=== PATIENT | female | born 1985 | race Caucasian/White ===

== ENCOUNTER 2024-11-21 14:18 | Observation (INO) | payer BC, SELFPAY ==
--- NOTE | ~2024-11-21 | XR_ITS ---
EXAMINATION: XR LUMBOSACRAL SPINE CLINICAL INFORMATION: left lower pain, radiating down leg ; radiculopathy. COMPARISON: None available. TECHNIQUE: Three views of the lumbosacral spine. FINDINGS: Normal lordosis. No scoliosis. No subluxations. No fracture, compression deformity, or suspicious bone lesion. Normal facet alignment. Minimal facet degeneration L4-S1. Mild disc degeneration evident L4-5 and moderate at L5-S1. Discs otherwise preserved. No discrete soft tissue abnormalities. XR/XR lumbar spine 2-3V IMPRESSION: 1. Mild degenerative spondylosis L4-S1. Electronically signed by: Jama Fernandes MD 11/21/2024 03:38 PM [facility]
--- NOTE | ~2024-11-21 | MR_ITS ---
EXAMINATION: MR LUMBAR SPINE WITHOUT CONTRAST CLINICAL INFORMATION: Low back pain. Left-sided disc extrusion at L5-S1 seen on recent CT. COMPARISON: Correlated to CT dated November 22, 2024. TECHNIQUE: MRI of the lumbar spine was obtained using routine sequences without contrast. FINDINGS: Last rib-bearing vertebra labeled T12. There is disc desiccation at L5-S1 and L4-5. The alignment is normal. No bone marrow STIR signal abnormality. The conus medullaris ends at inferior endplate of L1 with normal signal. T12-L1: No disc herniation. No neuroforamina stenosis. L1-2: No disc herniation. No neuroforamina stenosis. L2-3: Left subarticular disc protrusion. No compression upon neural elements. Facet joint hypertrophy. L3-4: No disc herniation. No central spinal canal stenosis. No gross neuroforamina stenosis. L4-5: Broad-based disc bulging abutting the L5 exiting nerve roots on the lateral recesses. Facet joint and ligamentum flavum hypertrophy. Bilateral neuroforamina narrowing encroaching the L4 exiting nerve roots. L5-S1: There is a broad-based left subarticular and foraminal disc herniation compressing the left S1 nerve root with engorgement. There is a left neuroforamina narrowing encroaching the left L5 exiting nerve root. Facet joint hypertrophy. No prevertebral compartment hematoma, mass or fluid collection. MR/MR lumbar spine wo con IMPRESSION: Large, broad-based left subarticular and foraminal disc herniation L5-S1 compressing the left S1 nerve root resulting in inflammatory changes. Left neuroforamina narrowing L5-S1 encroaching the left L5 nerve root secondary to the disc herniation. Lumbar spondylosis L4-5 and L2-3 without compression upon neural elements. Electronically signed by: Robbie Pennington MD 11/23/2024 11:28 AM EST
--- NOTE | ~2024-11-21 | CT_ITS ---
EXAMINATION: CT LUMBAR SPINE WITHOUT CONTRAST CLINICAL INFORMATION: Back pain. COMPARISON: None available. Plain films of the lumbar spine 11/21/2024. TECHNIQUE: Spiral CT imaging of the lumbar spine performed in axial plane without contrast. Multiplanar reformatted images were constructed from the axial data set. This CT examination was performed using dose optimization techniques as appropriate, variously including the following: *Automated exposure control *Adjustment of mA and/or kV according to patient size (this includes techniques or standardized protocols for targeted exams where dose is matched to indication/reason for exam; i.e. extremities or head) *Use of iterative reconstruction technique FINDINGS: There is a minimal levoconvex scoliosis. There is a normal lumbar lordosis. There is no subluxation. Normal sagittal alignment. No fracture, compression deformity, or suspicious bone lesion. Normal facet alignment bilaterally, without significant facet arthropathy. Mild disc space narrowing L4-5 and L5-S1. Minimal disc osteophytic spurring of L5-S1. Disc spaces otherwise preserved. There is a suggestion of a large left lateral disc extrusion at the L5-S1 level, which appears to be obliterating the left subarticular recess and causing mass effect upon the traversing left S1 roots (series 6, image 98). There is moderate right and mild left neural foraminal narrowing at this level. Allowing for modality limitations, there is no additional significant disc herniation identified. There is a shallow disc bulge without significant mass effect at L4-5. Mild degenerative arthritis in the bilateral SI joints. The paraspinous and paravertebral soft tissue structures demonstrate no abnormalities. CT/CT lumbar spine wo IV con IMPRESSION: 1. Primary pathology is a large left lateral disc extrusion at L5-S1, which is causing likely impingement and mass effect upon the traversing left S1 roots. There is also mild right and moderate left neural foraminal narrowing at this level. 2. There is a shallow disc bulge without significant mass effect at L4-5. Electronically signed by: Jama Fernandes MD 11/22/2024 09:36 AM [facility]
[2024-11-21 15:02] VITALS: BP 112/82; PULSE 71; RESP 18; TEMP 36.4; O2SAT 99; BMI 23.5
--- NOTE | 2024-11-21 15:02 | ED.GENADULT ---
HPI - General Adult General Chief complaint: Extremity Injury, Lower Stated complaint: L leg pain and numbness Time Seen by Provider: 11/21/24 21:03 Source: patient Mode of arrival: ambulatory Limitations: no limitations History of Present Illness ED Provider: Dr. Colten Zayas HPI narrative: 39-year-old female with a history diabetes mellitus who presents emergency department for evaluation of severe left lower back pain radiating to her buttocks and down her leg to her foot since Wednesday11/17/2024 (4 days). The patient denies any acute injury. She states she was had similar pain in the past but it was not as severe and was very brief. She states that the pain is currently a constant, 9/10 pain which is worse with movement of her lower back and left leg. She states since onset the pain is gotten worse. Patient was at an urgent care yesterday and given a shot of Toradol with only minimal relief of her pain. She was also started on a Medrol Dosepak 4 mg which she started has not changed her pain yet. She was also given a prescription for Flexeril 10 mg pills but she was not taking this medication. She states she did have a COVID-19 infection 2 weeks ago. Over the last 24-48 hours she denied fever, chills, chest pain, shortness of breath, nausea, vomiting, diarrhea, frequency, urgency or dysuria. Related Data Home Medications ?Medication ?Instructions ?Recorded ?Confirmed albuterol sulfate 90 mcg/actuation 2 puff inhalation Q6H PRN 11/22/24 11/22/24 aerosol inhaler Shortness Of Breath Or Wheezing clonazepam 0.5 mg tablet 1 mg PO BID PRN Anxiety 11/22/24 11/22/24 cyclobenzaprine 10 mg tablet 10 mg PO BEDTIME PRN muscle spasm 11/22/24 11/22/24 fluoxetine 10 mg capsule 10 mg PO DAILY 11/22/24 11/22/24 fluoxetine 20 mg capsule 20 mg PO DAILY 11/22/24 11/22/24 methylprednisolone 4 mg tablets in 4 mg PO DIRECTED 11/22/24 11/22/24 a dose pack norgestimate 0.18 mg/0.215 mg/0.25 1 tab PO DAILY 11/22/24 11/22/24 mg-ethinyl estradiol 25 mcg tablet (Tri-Lo-Dorothy) Allergies Allergy/AdvReac Type Severity Reaction Status Date / Time codeine [CODEINE] Allergy Mild VOMITTING Verified 11/21/24 15:06 Review of Systems Review of Systems: Yes all other systems are reviewed and are negative [facility] Past Medical History [facility] Narrative: Social history: Patient denies tobacco use. She occasionally drinks alcohol. She occasionally smokes marijuana. Social History Social History Household Members: Family Housing: House Do you presently have visiting nurse or other home services: No Patient Tobacco Use Status: Never used Tobacco Second Hand Smoke Exposure: No Substance Use Type: Marijuana service: No Physical Exam ED Vital Signs: Vital Signs - 24 hr 11/21/24 22:38 11/22/24 00:22 Temperature 98 F 98.7 F Pulse Rate 61 64 Respiratory Rate 18 20 Blood Pressure 100/69 109/63 Pulse Oximetry 98 98 Oxygen Delivery Method Room Air Room Air BMI result Body Mass Index 23.5 Vital signs were normal Exam: General: Awake, alert, tearful, in distress secondary to her lower back and left leg pain Head: Normocephalic, atraumatic Heart: regular rate and rhythm, normal S1, S2 no murmurs or rubs Abdomen: soft, non-tender, nondistended, normal bowel sounds Back: Patient was tenderness with palpation over the lower lumbar and sacral vertebrae, there is tenderness with spasm with palpation over the left paraspinal muscles in the lumbar sacral area. Patient does have pain in her lower back with left leg raise but no pain with right leg raise. Extremities: no deformities, moves all extremities symmetrically Neuro: General: Awake, alert, oriented, normal speech Cranial nerves: Cranial nerves 2 through 12 intact Strength: Normal symmetric strength in both upper and lower extremities, able to hold both upper and lower extremities up against gravity with no driftmoves all extremities symmetrically Sensory: Patient was hypersensitive on the left compared to the right, light touch there were left lower extremity causes pain. Psych: Pleasant, cooperative Course Course Course Narrative: This is a rapid medical exam performed by Deidre Wright NP: Additional HPI, ROS, PE not included below will be deferred to primary provider. Patient is a 39-year-old female presenting with complaint of left lower back pain and left leg numbness and pain since Wednesday night. Went to urgent care yesterday and was given Toradol, prednisone and muscle relaxers, is not getting any relief. Denies saddle anesthesia or bowel or bladder incontinence. Denies recent falls or other trauma. Plan: upreg, xray Medications Administered Generic Name Dose Route Start Last Admin Trade Name Frecolten PRN Reason Stop Dose Admin Enoxaparin Sodium 40 mg 11/22/24 05:45 11/22/24 05:59 Enoxaparin Sodium 40 Mg/0.4 Ml Syringe SUBCUT 40 mg Q24H ASHOK Administration Fluoxetine HCl 10 mg 11/22/24 09:00 11/22/24 10:38 Fluoxetine Hcl 10 Mg Capsule PO Not Given DAILY ASHOK Fluoxetine HCl 20 mg 11/22/24 10:00 11/22/24 11:19 Fluoxetine Hcl 20 Mg Capsule PO 20 mg DAILY ASHOK Administration Gabapentin 300 mg 11/22/24 05:55 11/22/24 20:54 Gabapentin 300 Mg Capsule PO 300 mg BEDTIME ASHOK Administration Morphine Sulfate 4 mg 11/22/24 05:39 11/22/24 19:34 Morphine Sulfate 4 Mg/Ml Cartridge IVPUSH 4 mg Q4H PRN Administration Pain, Severe (Pain Scale 7-10) Protocol Ondansetron HCl 4 mg 11/22/24 05:39 11/22/24 16:09 Ondansetron Hcl 4 Mg/2 Ml Vial IVPUSH 4 mg Q8H PRN Administration Nausea and Vomiting Oxycodone HCl 5 mg 11/22/24 05:40 11/22/24 18:46 Oxycodone Hcl Immed Release 5 Mg Tablet PO Not Given Q6H ASHOK Prednisone 40 mg 11/22/24 14:35 11/22/24 15:54 Prednisone 20 Mg Tablet PO 40 mg DAILY ASHOK Administration Sodium Chloride 3 ml 11/22/24 08:00 11/22/24 19:38 0.9 % Sodium Chloride Flush 3 Ml Syringe IVFLUSH 3 ml QSHIFT ASHOK Administration Discontinued Medications Generic Name Dose Route Start Last Admin Trade Name Freq PRN Reason Stop Dose Admin Hydromorphone HCl 1 mg 11/22/24 00:12 11/22/24 00:25 Hydromorphone Hcl 1 Mg/Ml Syringe IVPUSH 11/22/24 00:13 1 mg ONCE STA Administration Protocol Hydromorphone HCl 1 mg 11/22/24 02:07 11/22/24 02:45 Hydromorphone Hcl 1 Mg/Ml Syringe IVPUSH 11/22/24 02:08 1 mg ONCE STA Administration Protocol Morphine Sulfate 4 mg 11/21/24 21:34 11/21/24 22:14 Morphine Sulfate 4 Mg/Ml Cartridge IVPUSH 11/21/24 21:35 4 mg ONCE STA Administration Protocol Morphine Sulfate 4 mg 11/21/24 22:51 11/21/24 23:34 Morphine Sulfate 4 Mg/Ml Cartridge IVPUSH 11/21/24 22:52 4 mg ONCE STA Administration Protocol Medical Decision Making Medical Decision Making MDM Narrative: 39-year-old female with a history diabetes mellitus who presents emergency department for evaluation of severe left lower back pain radiating to her buttocks and down her leg to her foot since Wednesday11/17/2024 (4 days). The patient denies any acute injury. She states she was had similar pain in the past but it was not as severe and was very brief. She states that the pain is currently a constant, 9/10 pain which is worse with movement of her lower back and left leg. She states since onset the pain is gotten worse. Patient was at an urgent care yesterday and given a shot of Toradol with only minimal relief of her pain. She was also started on a Medrol Dosepak 4 mg which she started has not changed her pain yet. She was also given a prescription for Flexeril 10 mg pills but she was not taking this medication. Vital signs were normal. Physical examination revealed tenderness palpation of the lower lumbar and sacral vertebrae, pain and spasm with palpation of the paraspinal muscles in the left lumbar sacral area, positive straight leg raise on the left but not on the right. Strength was symmetric and normal in both upper and lower extremities. Differential diagnosis: ?Includes but is not limited to sciatica, degenerative disc disease, degenerative arthritis, bulging disc, infectious process, myositis secondary to recent COVID infection, rhabdomyolysis, anemia, electrolyte abnormalities Course: 21:46 Patient was examination is concerning for possible sciatica however she did have a recent viral infection therefore I will check blood work on her to include CBC, CMP, ESR, CRP, CK. The patient was having 9/10 pain therefore I ordered morphine 4 mg IV. The goal will be to try to get the patient's pain down to a tolerable level with repeat doses of morphine and if we were unable to control her pain she may need admission for pain control. Patient was LS spine x-rays did reveal L4-L5 and L5-S1 degenerative disc disease with mild facet degeneration L4-S1 and mild L4-S1 degenerative spondylosis. These findings may explain the patient's sciatica like symptoms. 02:08 My interpretation patient's laboratory evaluation is as follows: [place] [address]. ESR was normal. CRP was below detectable limits. CMP was normal. The patient was treated with morphine 4 mg IV x2 and Dilaudid 1 mg IV x2 and despite this treatment she was still having 8/10 pain. Given her intractable pain, I will get the patient admitted for further pain control. I did discuss the patient's presentation over tiger text with the covering hospitalist and he accepted the patient onto the hospitalist service. The patient may need further imaging as an inpatient such as MRI to determine cause of her pain. Admission/Observation Consideration of admission/observation: Escalation of care including admission/observation considered (Yes) Consult Healthcare Provider Management of the patient was discussed with: Hospitalist Lab Data MDM Lab Attestation statement: I reviewed the patient's lab results. 11/21/24 22:12 11/21/24 22:12 Labs: Lab Results 11/21/24 Range/Units 22:12 WBC 12.1 H (4.8-10.8) X10*3/uL RBC 4.08 L (4.20-5.50) X10*6/uL Hgb 12.6 (12.0-16.0) g/dl Hct 37.1 (37.0-47.0) % MCV 90.9 (80.0-98.0) fL MCH 30.9 (27.0-33.0) pg MCHC 34.0 (31.0-35.0) g/dl RDW 12.5 (11.0-16.0) % Plt Count 209 (160-400) X10*3/uL MPV 9.5 (9.4-12.3) fL Immature Gran % (Auto) 0.2 (0.0-0.4) % Neut % (Auto) 61.1 (45-73) % Lymph % (Auto) 33.5 (20-40) % [place]ancock % (Auto) 4.3 (2-11) % Eos % (Auto) 0.5 (0-4) % Baso % (Auto) 0.4 (0-2) % Lymph # (Auto) 4.0 (1.2-4.9) X10*3/uL Hancock # (Auto) 0.5 (0.1-1.2) X10*3/uL Eos # (Auto) 0.1 (0.0-0.4) X10*3/uL Baso # (Auto) 0.1 (0.0-0.2) X10*3/uL Abs Immat Gran (auto) 0.03 (0.00-0.03) X10*3/uL Absolute Neuts (auto) 7.4 (2.0-8.3) x10*3/uL Absolute Nucleated RBC 0.000 (0.0-0.012) X10*3/uL Nucleated RBC % (auto) 0.0 (0.0-0.2) /100WBC ESR 6 (0-20) MM/HR Sodium 143 (135-145) mmol/L Potassium 3.8 (3.3-5.1) mmol/L Chloride 111 H (96-108) mmol/L Carbon Dioxide 24 (22-29) mmol/L Anion Gap 12 (12-20) BUN 9 (9-16) mg/dL Creatinine 0.75 (0.5-1.4) mg/dL Estim Creat Clear Calc 103.1 Estimated GFR > 60 Random Glucose 86 (60-115) mg/dL Calcium 9.4 (8.4-10.2) mg/dL Total Bilirubin 0.4 (0.0-1.0) mg/dL AST 22 (5-31) U/L ALT 20 (0-31) U/L Alkaline Phosphatase 40 (39-117) U/L Total Creatine Kinase 63 (26-140) U/L C-Reactive Protein < 0.10 (< or = 0.50) mg/dL Total Protein 7.1 (6.5-8.0) g/dL Albumin 4.3 (3.5-5.0) g/dL Beta HCG, Quant < 2 mIU/mL Independent Interpretation I performed an independent interpretation of an: Plain X-Ray Interpretation: My independent interpretation of the patient's 3-view lumbar x-ray is as follows: Diminished this space L4-L5 L5-S1 Radiology Impression Discussion of test interpretation with radiology: I have reviewed the radiologist's reading. Radiologist Impression: Three views of the lumbosacral spine. FINDINGS: Normal lordosis. No scoliosis. No subluxations. No fracture, compression deformity, or suspicious bone lesion. Normal facet alignment. Minimal facet degeneration L4-S1. Mild disc degeneration evident L4-5 and moderate at L5-S1. Discs otherwise preserved. No discrete soft tissue abnormalities. XR/XR lumbar spine 2-3V IMPRESSION: 1. Mild degenerative spondylosis L4-S1. Electronically signed by: Jama Fernandes MD 11/21/2024 03:38 PM [facility] Discharge Plan Discharge Clinical Impression: Intractable back pain, Sciatica of left side, Low back pain radiating to left leg, Degenerative disc disease at L5-S1 level, Spondylosis Patient Disposition: Admitted As Inpatient Interventions: Admission Worksheet (ED) Last Done: 11/22/24 17:04 Discharge Date/Time: 11/22/24 17:51
[2024-11-21] MEDS: Morphine Sulfate 4 MG/ML CARTRIDGE IVPUSH ×2 (22:14→23:34)
[2024-11-21 22:19] LABS: MANUAL DIFF FLAG NO
[2024-11-21 22:21] LABS: Basophils Absolute Auto 0.1 X10*3/uL (0.0-0.2); Basophils Percent Auto 0.4 % (0-2); Eosinophils Absolute Auto 0.1 X10*3/uL (0.0-0.4); Eosinophils Percent Auto 0.5 % (0-4); Hematocrit 37.1 % (37.0-47.0); Hemoglobin 12.6 g/dl (12.0-16.0); Imm Gran Abs Auto 0.03 X10*3/uL (0.00-0.03); Imm Gran Pct Auto 0.2 % (0.0-0.4); Lymphocytes Percent Auto 33.5 % (20-40); Mean Corpuscular Hemoglobin 30.9 pg (27.0-33.0); Mean Corpuscular Volume 90.9 fL (80.0-98.0); Mean Platelet Volume 9.5 fL (9.4-12.3); Monocytes Absolute Auto 0.5 X10*3/uL (0.1-1.2); Monocytes Percent Auto 4.3 % (2-11); Neutrophils Absolute Auto 7.4 x10*3/uL (2.0-8.3); Neutrophils Percent Auto 61.1 % (45-73); Platelet Count 209 X10*3/uL (160-400); Red Blood Count 4.08 X10*6/uL (4.20-5.50); Red Cell Distribution Width 12.5 % (11.0-16.0); White Blood Count 12.1 X10*3/uL (4.8-10.8)
[2024-11-21 22:38] VITALS: BP 100/69; PULSE 61; RESP 18; TEMP 36.6; O2SAT 98
[2024-11-21 22:43] LABS: Alanine Aminotransferase 20 U/L (0-31); Albumin Level 4.3 g/dL (3.5-5.0); Anion Gap 12 (12-20); Aspartate Amino Transferase 22 U/L (5-31); Bilirubin Total 0.4 mg/dL (0.0-1.0); Blood Urea Nitrogen 9 mg/dL (9-16); C Reactive Protein < 0.10 mg/dL (< or = 0.50); Calcium 9.4 mg/dL (8.4-10.2); Carbon Dioxide 24 mmol/L (22-29); Chloride 111 mmol/L (96-108); Creatinine Clr Calc Pharmacy 103.1; Estimated Glomerular Filt Rate > 60; Glucose Random 86 mg/dL (60-115); Potassium 3.8 mmol/L (3.3-5.1); Sodium 143 mmol/L (135-145); Total Protein 7.1 g/dL (6.5-8.0)
[2024-11-21 23:01] LABS: Erythrocyte Sedimentation Rate 6 MM/HR (0-20)
[2024-11-21 23:13] LABS: Alkaline Phosphatase 40 U/L (39-117)
[2024-11-22] VITALS (7 sets, daily range): BP systolic 94–120; BP diastolic 52–78; PULSE 53–64; RESP 14–20; TEMP 36–37.1; O2SAT 96–100
[2024-11-22] MEDS: HYDROmorphone HCl 1 MG/ML SYRINGE IVPUSH ×2 (00:25→02:45)
--- NOTE | 2024-11-22 05:29 | PM.IMHP ---
History of Present Illness Date of Service: 11/22/24 Attending physician on admission: Adrian Bustos Chief Complaint: Left lower back pain radiating down leg Patient is a 39-year-old female with no significant past medical history, who presented to the ED due to severe left lower back pain radiating down the buttocks to the foot for the past 4 days. She denies any recent injury or any mechanism of action that could have caused this. She reports her father has sciatica and feels that this is the same. She rates her pain at 10/10 and describes it as her leg muscle being too short and pulling upwards. She went to urgent care who prescribed her Medrol Dosepak as well as gave her Toradol and Flexeril. She reports that she had not tried the Flexeril but did not have any relief from any of the other medications. She denies any additional symptoms including nausea, vomiting, abdominal pain, headache, fever, chills or urinary symptoms. She did recently have COVID about 2 weeks ago and has recovered from this. Review of Systems Constitutional: Constitutional: Denies body ache(s), Denies chills, Reports fatigue (Has not been able to sleep due to pain), Denies fever(s) and Denies headache(s) Eyes: Eyes: Denies change in vision and Denies photophobia ENT: Denies headache(s), Denies nasal congestion, Denies nasal discharge and Denies sore throat Cardiovascular: Cardiovascular: Denies chest pain, Denies rapid heart rate, Denies leg edema, Denies lightheadedness and Denies dyspnea Respiratory: Respiratory: Denies chest congestion, Denies cough, Denies dyspnea and Denies wheezing Gastrointestinal: Gastrointestinal: Denies abdominal pain, Denies diarrhea, Denies nausea and Denies vomiting Genitourinary: Genitourinary: Denies hematuria, Denies dysuria and Denies urinary urgency Musculoskeletal: Musculoskeletal: Reports back pain, Denies myalgias and Reports radiating pain into limb Integumentary/Breasts: Skin/Breast: Denies rash Neurologic: Denies confusion and Denies headache(s) Psychiatric: Psychiatric: Denies confusion Endocrine: Endocrine: Reports fatigue (Has not been able to sleep due to pain) Hematologic/Lymphatic: Hematologic/Lymphatic: Denies easy bleeding and Denies easy bruising Allergic/Immunologic: Allergic/Immunologic: Denies wheezing PMFSH Functional capacity: independent ambulation Social History Patient Tobacco Use Status: Never used Tobacco Advance Directives: No Advance Directives Information Provided: No Do you have a plan to hurt others: No Plan Nutrition Risks: No Nutritional Risk Narrative: Occasional marijuana, no alcohol or tobacco use Meds Allergies Allergy/AdvReac Type Severity Reaction Status Date / Time codeine [CODEINE] Allergy Mild VOMITTING Verified 11/21/24 15:06 Physical Exam Vital Signs and Narrative: Vital Signs: Last Vital Signs Temp 98.7 F 11/22/24 00:22 Pulse 64 11/22/24 00:22 Resp 20 11/22/24 00:22 BP 109/63 11/22/24 00:22 Pulse Ox 98 11/22/24 00:22 O2 Del Method Room Air 11/22/24 00:22 BMI result Body Mass Index 23.5 General: AOx3, no acute distress Resp: CTA bilaterally CVS: S1, S2, RRR GI: +BS, NT, no distention Skin: Warm, dry Neuro: Cranial nerves II-XII grossly intact bilaterally. Motor grossly intact bilaterally MSK/Extremities: No LE edema. pain LL back with palpation. Psych: Appropriate affect Const: General: No confusion Orientation/consciousness: No confusion Eyes: Direct Ophthalmoscopy: No photophobia Neuro: General: No confusion Results Labs 11/21/24 22:12 11/21/24 22:12 Labs: Laboratory Results - last 24 hr 11/21/24 22:12 MCV 90.9 MCH 30.9 MCHC 34.0 RDW 12.5 Plt Count 209 MPV 9.5 Immature Gran % (Auto) 0.2 Neut % (Auto) 61.1 Lymph % (Auto) 33.5 Walton % (Auto) 4.3 Eos % (Auto) 0.5 Baso % (Auto) 0.4 Lymph # (Auto) 4.0 Walton # (Auto) 0.5 Eos # (Auto) 0.1 Baso # (Auto) 0.1 Abs Immat Gran (auto) 0.03 Absolute Neuts (auto) 7.4 Absolute Nucleated RBC 0.000 Nucleated RBC % (auto) 0.0 ESR 6 Anion Gap 12 Estim Creat Clear Calc 103.1 Estimated GFR > 60 Random Glucose 86 Calcium 9.4 Total Bilirubin 0.4 AST 22 ALT 20 Alkaline Phosphatase 40 Total Creatine Kinase 63 C-Reactive Protein < 0.10 Total Protein 7.1 Albumin 4.3 Imaging Radiologist's Impressions: Impressions Lumbar Spine X-Ray 11/21/24 15:25 IMPRESSION: 1. Mild degenerative spondylosis L4-S1. Electronically signed by: Jama Fernandes MD 11/21/2024 03:38 PM [facility] Assessment and Plan (1) Intractable back pain: Status: Acute (2) Sciatica of left side: Status: Acute (3) Degenerative disc disease at L5-S1 level: Status: Acute (4) Spondylosis: Status: Acute Plan Patient is a 39-year-old female with no significant past medical history, who presented to the ED due to severe left lower back pain radiating down the buttocks to the foot for the past 4 days. Intractable back pain due to degenerative disc disease, spondylosis and sciatica - WBC mildly elevated, reactive. vital signs stable, no infectious etiology - lumbar spine x-ray with mild degenerative spondylosis L4-S1, minimal facet degeneration L4-S1, mild disc degeneration evident L4-5 and moderate at L5-S1 - given morphine 8 mg total and hydromorphone 2 mg total with minimal short-term improvement - gabapentin for pain - CT lumbar spine to r/o fx - PT eval - admit for pain management - will need to f/u with spinal specialist Full code VTE prophylaxis: Lovenox Patient with intractable pain due to degenerative disc disease, spondylosis and sciatica, requiring admission for observation and pain management. Quality Stroke Does the patient have a stroke diagnosis?: No VTE Prior VTE?: No VTE Risk Level:: Medical - moderate - high VTE Device Contraindication: Treatment Not Indicated VTE Drug Contraindication: N/A - Med Ordered
[2024-11-22] MEDS: Enoxaparin Sodium 40 MG/0.4 ML SYRINGE SUBCUT (05:59)
[2024-11-22] MEDS: oxyCODONE HCl Immed Release 5 MG TABLET PO ×2 (05:59→11:21)
[2024-11-22] MEDS: Gabapentin 300 MG CAPSULE PO ×2 (05:59→20:54)
[2024-11-22 07:33] LABS: HCG Quantitative < 2 mIU/mL
--- NOTE | 2024-11-22 08:29 | PHA.MEDREC ---
Addendum entered by Chelsy Valencia [facility] 11/22/24 09:50: Med rec was reviewed by [facility]. Addendum entered by Gurvinder Galvez 11/22/24 09:34: Spoke with patient again about Fluoxetine and she confirmed her doctor increased it to 30mg daily and she confirmed she takes 1 10mg tab and 1 20mg tab together daily. Original Note: Pharmacy Consult ? Medication Reconciliation Pharmacy has completed the medication reconciliation. Spoke with patient and she confirmed her medications. Patient confirmed the Cyclobenzaprine 10mg tab once at bedtime as needed and stated she started it 2 days ago when she got them. She also confirmed she is taking the Methylprednisolone 4 mg dose pack and confirmed she is on day 3 of that out of 6. She confirmed she took her medications yesterday.
[2024-11-22] MEDS: Morphine Sulfate 4 MG/ML CARTRIDGE IVPUSH ×4 (08:46→23:38)
[2024-11-22] MEDS: ondansetron HCL 4 MG/2 ML VIAL IVPUSH ×2 (08:46→16:09)
[2024-11-22] MEDS: 0.9 % Sodium Chloride Flush 3 ML SYRINGE IVFLUSH ×2 (08:47→19:38)
[2024-11-22] MEDS: FLUoxetine HCl 20 MG CAPSULE PO (11:19)
--- NOTE | 2024-11-22 12:26 | MHC.CM.PN ---
pt lives with and child she is independent and working dc plan home n/s
--- NOTE | 2024-11-22 13:19 | PM.NEUROCN ---
History of Present Illness Data of Consult Service Date: 11/22/24 Primary Care Provider: Luis F Arias MD [facility] Reason for consult: Left sciatica type pain 39 years old woman who in the past had left-sided back pain but during recent days this pain got worse. Sitting in the car, pain would start in left lower back and would radiate to posterior part of her leg to the foot. This pain got so severe she came to emergency room. Any movement of back was making it worse. Review of Systems Review of Systems: No recent fall or trauma. [facility] Social History Social History Household Members: Family Housing: House Do you presently have visiting nurse or other home services: No Patient Tobacco Use Status: Never used Tobacco Smoked in Last 30 Days: No Patient Interested in Nicotine Replacement: No Patient Given Instructions on How to Stop Smoking: No Second Hand Smoke Exposure: No Use of substances other than those prescribed or required for medical reasons: No Substance Use Type: Marijuana Currently Displaying Signs/Symptoms of Drug Intoxication Withdrawal: No Any prior treatment program specific to substance use: No Have you been hit, kicked, punched, or otherwise hurt by someone within the past year? If so, by whom?: No Do you feel safe in your current relationship?: Yes Is there a partner from a previous relationship who is making you feel unsafe now?: No Are you made to feel afraid or neglected: No Spiritual Healthcare Practices: oriental orthodox Advance Directives: No Advance Directives Information Provided: No Do you have a plan to hurt others: No Plan Recently lost weight without trying: Unsure How much weight loss: Unsure Nutrition Risks: No Nutritional Risk Patient : No : No Poor oral hygiene: No service: No Meds Allergies Allergy/AdvReac Type Severity Reaction Status Date / Time codeine [CODEINE] Allergy Mild VOMITTING Verified 11/21/24 15:06 Active Medications: Current Medications Acetaminophen (Acetaminophen 325 Mg Tablet) 650 mg PO Q6H PRN PRN Reason: Pain, Mild 1-3,fever,headache Albuterol Sulfate (Albuterol Sulfate 90 Mcg 8 Gm Inhaler) 2 puff INHALE Q6H PRN PRN Reason: Shortness Of Breath Or Wheezing Calcium Carbonate (Calcium Carbonate 750 Mg Tab.Chew) 750 mg PO Q4H PRN PRN Reason: Heartburn Clonazepam (Clonazepam 1 Mg Tablet) 1 mg PO BID PRN PRN Reason: Anxiety Cyclobenzaprine HCl (Cyclobenzaprine Hcl 10 Mg Tablet) 10 mg PO BEDTIME PRN PRN Reason: muscle spasm Enoxaparin Sodium (Enoxaparin Sodium 40 Mg/0.4 Ml Syringe) 40 mg SUBCUT Q24H [facility] Last Admin: 11/22/24 05:59 Dose: 40 mg Fluoxetine HCl (Fluoxetine Hcl 10 Mg Capsule) 10 mg PO DAILY [facility] Last Admin: 11/22/24 10:38 Dose: Not Given Fluoxetine HCl (Fluoxetine Hcl 20 Mg Capsule) 20 mg PO DAILY [facility] Last Admin: 11/22/24 11:19 Dose: 20 mg Gabapentin (Gabapentin 300 Mg Capsule) 300 mg PO BEDTIME [facility] Last Admin: 11/22/24 05:59 Dose: 300 mg Magnesium Hydroxide (Milk Of Magnesia 30 Ml Oral.Susp) 30 ml PO DAILY PRN PRN Reason: Constipation Melatonin (Melatonin 3 Mg Tablet) 6 mg PO BEDTIME PRN PRN Reason: Insomnia Morphine Sulfate (Morphine Sulfate 4 Mg/Ml Cartridge) 4 mg IVPUSH Q4H PRN; Protocol PRN Reason: Pain, Severe (Pain Scale 7-10) Last Admin: 11/22/24 13:07 Dose: 4 mg Ondansetron HCl (Ondansetron Hcl 4 Mg/2 Ml Vial) 4 mg IVPUSH Q8H PRN PRN Reason: Nausea and Vomiting Last Admin: 11/22/24 08:46 Dose: 4 mg Oxycodone HCl (Oxycodone Hcl Immed Release 5 Mg Tablet) 5 mg PO Q6H [facility] Last Admin: 11/22/24 11:21 Dose: 5 mg Sodium Chloride (0.9 % Sodium Chloride Flush 3 Ml Syringe) 3 ml IVFLUSH QSHIFT [facility] Last Admin: 11/22/24 08:47 Dose: 3 ml Home Medications ?Medication ?Instructions ?Recorded ?Confirmed ?Last Taken ?Type albuterol sulfate 90 mcg/actuation 2 puff inhalation Q6H PRN 11/22/24 11/22/24 Unknown History aerosol inhaler Shortness Of Breath Or Wheezing clonazepam 0.5 mg tablet 1 mg PO BID PRN Anxiety 11/22/24 11/22/24 11/21/24 History cyclobenzaprine 10 mg tablet 10 mg PO BEDTIME PRN muscle spasm 11/22/24 11/22/24 11/20/24 History fluoxetine 10 mg capsule 10 mg PO DAILY 11/22/24 11/22/24 11/21/24 History fluoxetine 20 mg capsule 20 mg PO DAILY 11/22/24 11/22/24 11/21/24 History methylprednisolone 4 mg tablets in 4 mg PO DIRECTED 11/22/24 11/22/24 11/21/24 History a dose pack norgestimate 0.18 mg/0.215 mg/0.25 1 tab PO DAILY 11/22/24 11/22/24 11/21/24 History mg-ethinyl estradiol 25 mcg tablet (Tri-Lo-Dorothy) Physical Exam Vital Signs: Vital Signs: Last Vital Signs Temp 98.1 F 11/22/24 11:30 Pulse 64 11/22/24 11:30 Resp 14 11/22/24 11:30 BP 105/67 11/22/24 11:30 Pulse Ox 100 11/22/24 11:30 O2 Del Method Room Air 11/22/24 11:30 BMI result Body Mass Index 23.5 Neuro: Other: Alert and awake with normal spontaneity of speech fluency comprehension and affect. Left ankle reflex was 1+ in right was 2+. Both knee reflexes were 2+. Strength examination in left extensor hallucis longus, foot dorsiflexion plantars flexion inversion and eversion was okay. She was able to lift her left leg up but felt significant pain and was in distress. Results Labs 11/21/24 22:12 11/21/24 22:12 Labs: Short CBC 11/21/24 Range/Units 22:12 WBC 12.1 H (4.8-10.8) X10*3/uL Hgb 12.6 (12.0-16.0) g/dl Hct 37.1 (37.0-47.0) % Plt Count 209 (160-400) X10*3/uL BMP 11/21/24 22:12 Sodium 143 Potassium 3.8 Chloride 111 H Carbon Dioxide 24 BUN 9 Creatinine 0.75 Calcium 9.4 Cardiac Enzymes 11/21/24 Range/Units 22:12 Total Creatine Kinase 63 (26-140) U/L Liver Function 11/21/24 Range/Units 22:12 Total Bilirubin 0.4 (0.0-1.0) mg/dL AST 22 (5-31) U/L ALT 20 (0-31) U/L Alkaline Phosphatase 40 (39-117) U/L Albumin 4.3 (3.5-5.0) g/dL CTA of her back revealed left L5-S1 disc extrusion. Assessment and Plan (1) Lumbar radiculopathy: Status: Acute 39 years old woman with severe left lower lumbar radicular pain with CTA of lumbar spine revealing L5-S1 disc extrusion, likely the cause of this problem. She would probably require surgical decompression but for now she could be treated with a tapering dose of prednisone. Neuro surgical consultation is recommended. Procedures Date of Service Date of Service: 11/22/24
--- NOTE | 2024-11-22 14:33 | PM.EVENT ---
Event Note Date of Service: 11/22/24 Event Note: 39-year-old female with no significant past medical history, who presented to the ED due to severe left lower back pain radiating down the buttocks to the foot for the past 4 days. Intractable back pain due to degenerative disc disease, spondylosis and sciatica - WBC mildly elevated, reactive. vital signs stable, no infectious etiology - lumbar spine x-ray with mild degenerative spondylosis L4-S1, minimal facet degeneration L4-S1, mild disc degeneration evident L4-5 and moderate at L5-S1 - given morphine 8 mg total and hydromorphone 2 mg total with minimal short-term improvement - gabapentin for pain - CT lumbar spine done. seen by neuro with the following pt seen/examined. Labs, imgaing reviewed. She is having back pain d/t L5-S1 disc extrusion, likely the cause of this problem. She would probably require surgical decompression but for now she could be treated with a tapering dose of prednisone. Neuro surgical consultation is recommended. Starting Prednisone and will discuss with our Neurosrug team Time Spent With Patient Time: Total time managing care of this patient today ____ minutes.
[2024-11-22 15:35] LABS: UPreg QC Valid YES; Urine Pregnancy NEGATIVE (NEGATIVE)
[2024-11-22] MEDS: predniSONE 20 MG TABLET 40 MG PO (15:54)
[2024-11-23] MEDS: Morphine Sulfate 4 MG/ML CARTRIDGE IVPUSH ×2 (04:38→07:30)
[2024-11-23 05:51] LABS: MANUAL DIFF FLAG NO
[2024-11-23 06:10] LABS: Basophils Percent Auto 0.2 % (0-2); Hemoglobin 12.9 g/dl (12.0-16.0); Imm Gran Abs Auto 0.03 X10*3/uL (0.00-0.03); Imm Gran Pct Auto 0.3 % (0.0-0.4); Lymphocytes Percent Auto 11.1 % (20-40); Mean Corpuscular HGB Conc 33.1 g/dl (31.0-35.0); Mean Corpuscular Hemoglobin 30.6 pg (27.0-33.0); Mean Corpuscular Volume 92.4 fL (80.0-98.0); Monocytes Absolute Auto 0.2 X10*3/uL (0.1-1.2); Monocytes Percent Auto 2.7 % (2-11); Neutrophils Absolute Auto 7.5 x10*3/uL (2.0-8.3); Neutrophils Percent Auto 85.7 % (45-73); Platelet Count 214 X10*3/uL (160-400); Red Blood Count 4.22 X10*6/uL (4.20-5.50); Red Cell Distribution Width 12.4 % (11.0-16.0); White Blood Count 8.8 X10*3/uL (4.8-10.8)
[2024-11-23 06:20] LABS: Anion Gap 12 (12-20); Blood Urea Nitrogen 11 mg/dL (9-16); Calcium 8.9 mg/dL (8.4-10.2); Carbon Dioxide 22 mmol/L (22-29); Chloride 109 mmol/L (96-108); Estimated Glomerular Filt Rate > 60; Glucose Random 109 mg/dL (60-115); Sodium 139 mmol/L (135-145)
[2024-11-23] MEDS: Enoxaparin Sodium 40 MG/0.4 ML SYRINGE SUBCUT (06:32)
[2024-11-23 07:13] VITALS: BP 107/67; PULSE 74; RESP 18; TEMP 36.6; O2SAT 100
[2024-11-23] MEDS: ondansetron HCL 4 MG/2 ML VIAL IVPUSH (07:31)
[2024-11-23] MEDS: FLUoxetine HCl 20 MG CAPSULE PO (08:44)
[2024-11-23] MEDS: FLUoxetine HCl 10 MG CAPSULE PO (08:44)
[2024-11-23] MEDS: 0.9 % Sodium Chloride Flush 3 ML SYRINGE IVFLUSH ×2 (08:46→23:26)
[2024-11-23] MEDS: methylPREDNISolone Sod Succ 125 MG/2 ML VIAL 60 MG IVPUSH ×2 (08:58→21:21)
--- NOTE | 2024-11-23 10:10 | HO.PM.IMPN ---
Subjective Subjective Date of Service: 11/23/24 Interval History: f/u on back, protruded disck still with lots of pain, no focal neuro deficit, pain does radiate to leg left no urinary or stool incontinence. She is ambulating indepednently limited with the pain in the back Physical Exam Vital Signs: Vital Signs: Last Vital Signs Temp 97.9 F 11/23/24 07:13 Pulse 74 11/23/24 07:13 Resp 18 11/23/24 07:13 BP 107/67 11/23/24 07:13 Pulse Ox 100 11/23/24 07:13 O2 Del Method Room Air 11/23/24 07:13 BMI result Body Mass Index 23.5 Const: Other: General: AO X 3, no acute distress Resp: CTA bilateral CVS: S1,S2,RRR GI: +BS, NT, no distention Skin: No rash Neuro: motor grossly intact, strenght in both leg intact, does get radiated paint to left upon lifting Psych: appropriate affect Neuro: Other: Alert and awake with normal spontaneity of speech fluency comprehension and affect. Left ankle reflex was 1+ in right was 2+. Both knee reflexes were 2+. Strength examination in left extensor hallucis longus, foot dorsiflexion plantars flexion inversion and eversion was okay. She was able to lift her left leg up but felt significant pain and was in distress. Objective Data Active Medications Acetaminophen (Acetaminophen 325 Mg Tablet) 650 mg PO Q6H PRN PRN Reason: Pain, Mild 1-3,fever,headache Albuterol Sulfate (Albuterol Sulfate 90 Mcg 8 Gm Inhaler) 2 puff INHALE Q6H PRN PRN Reason: Shortness Of Breath Or Wheezing Calcium Carbonate (Calcium Carbonate 750 Mg Tab.Chew) 750 mg PO Q4H PRN PRN Reason: Heartburn Clonazepam (Clonazepam 1 Mg Tablet) 1 mg PO BID PRN PRN Reason: Anxiety Cyclobenzaprine HCl (Cyclobenzaprine Hcl 10 Mg Tablet) 10 mg PO BEDTIME PRN PRN Reason: muscle spasm Enoxaparin Sodium (Enoxaparin Sodium 40 Mg/0.4 Ml Syringe) 40 mg SUBCUT Q24H [facility] Last Admin: 11/23/24 06:32 Dose: 40 mg Documented By: SAVANNA Fluoxetine HCl (Fluoxetine Hcl 10 Mg Capsule) 10 mg PO DAILY [facility] Last Admin: 11/23/24 08:44 Dose: 10 mg Documented By: CLAUS Fluoxetine HCl (Fluoxetine Hcl 20 Mg Capsule) 20 mg PO DAILY [facility] Last Admin: 11/23/24 08:44 Dose: 20 mg Documented By: CLAUS Gabapentin (Gabapentin 300 Mg Capsule) 300 mg PO BEDTIME [facility] Last Admin: 11/22/24 20:54 Dose: 300 mg Documented By: SAVANNA Hydromorphone HCl (Hydromorphone Hcl 1 Mg/Ml Syringe) 1 mg IVPUSH Q4H PRN; Protocol PRN Reason: Pain, Severe (Pain Scale 7-10) Magnesium Hydroxide (Milk Of Magnesia 30 Ml Oral.Susp) 30 ml PO DAILY PRN PRN Reason: Constipation Melatonin (Melatonin 3 Mg Tablet) 6 mg PO BEDTIME PRN PRN Reason: Insomnia Methylprednisolone Sodium Succinate (Methylprednisolone Sod Succ 125 Mg/2 Ml Vial) 60 mg IVPUSH Q12H [facility] Last Admin: 11/23/24 08:58 Dose: 60 mg Documented By: CLAUS Ondansetron HCl (Ondansetron Hcl 4 Mg/2 Ml Vial) 4 mg IVPUSH Q8H PRN PRN Reason: Nausea and Vomiting Last Admin: 11/23/24 07:31 Dose: 4 mg Documented By: CLAUS Oxycodone HCl (Oxycodone Hcl Immed Release 5 Mg Tablet) 5 mg PO Q6H [facility] Last Admin: 11/23/24 05:47 Dose: Not Given Documented By: SAVANNA Non-Admin Reason: PT DECLINED, NOT EATING WELL AND MEDICINE UPS Sodium Chloride (0.9 % Sodium Chloride Flush 3 Ml Syringe) 3 ml IVFLUSH QSHIFT [facility] Last Admin: 11/23/24 08:46 Dose: 3 ml Documented By: CLAUS Labs 11/23/24 05:30 11/23/24 05:30 Labs: Laboratory Results - last 24 hr 11/22/24 11/23/24 15:26 05:30 MCV 92.4 MCH 30.6 MCHC 33.1 RDW 12.4 Plt Count 214 MPV 10.0 Immature Gran % (Auto) 0.3 Neut % (Auto) 85.7 H Lymph % (Auto) 11.1 L [place] % (Auto) 2.7 Eos % (Auto) 0.0 Baso % (Auto) 0.2 Lymph # (Auto) 1.0 L [place] # (Auto) 0.2 Eos # (Auto) 0.0 Baso # (Auto) 0.0 Abs Immat Gran (auto) 0.03 Absolute Neuts (auto) 7.5 Absolute Nucleated RBC 0.000 Nucleated RBC % (auto) 0.0 Anion Gap 12 Estim Creat Clear Calc 119.0 Estimated GFR > 60 Random Glucose 109 Calcium 8.9 Urine Test NEGATIVE Assessment and Plan (1) Intractable back pain: Status: Acute (2) Sciatica of left side: Status: Acute Plan 39-year-old female with no significant past medical history, who presented to the ED due to severe left lower back pain radiating down the buttocks to the foot for the past 4 days. Intractable back pain due to degenerative disc disease, spondylosis and sciatica - WBC mildly elevated, reactive. vital signs stable, no infectious etiology - lumbar spine x-ray with mild degenerative spondylosis L4-S1, minimal facet degeneration L4-S1, mild disc degeneration evident L4-5 and moderate at L5-S1 - given morphine 8 mg total and hydromorphone 2 mg total with minimal short-term improvement - gabapentin for pain - CT lumbar spine done. seen by neuro with the following pt seen/examined. Labs, imgaing reviewed. She is having back pain d/t L5-S1 disc extrusion, likely the cause of this problem. She would probably require surgical decompression but for now she could be treated with a tapering dose of prednisone. Neuro surgical consultation is recommended. Discuss with Neuro and will have outpatient follow up neurosurgery follow, the neurosurgery team will call her. MRI of the back was also performed and showed: Large, broad-based left subarticular and foraminal disc herniation L5-S1 compressing the left S1 nerve root resulting in inflammatory changes Left neuroforamina narrowing L5-S1 encroaching the left L5 nerve root secondary to the disc herniation. Lumbar spondylosis L4-5 and L2-3 without compression upon neural elements. finding similar to CT. The result were discussed with [facility] and they recommend outpatient follow up. The finding and treatment plan was discussed with patient with RN present. Continue pain meds (dilaudid, oxydoen, and toradol, tylenol) Changing Prednisone to IM solumedrol. Quality Stroke Does the patient have a stroke diagnosis?: No VTE Prior VTE?: No VTE Risk Level:: Medical - moderate - high VTE Device Contraindication: Treatment Not Indicated VTE Drug Contraindication: N/A - Med Ordered
[2024-11-23] MEDS: oxyCODONE HCl Immed Release 5 MG TABLET PO ×3 (11:13→23:25)
[2024-11-23] MEDS: Ketorolac Tromethamine 15 MG/ML VIAL IVPUSH (11:13)
[2024-11-23] MEDS: HYDROmorphone HCl 1 MG/ML SYRINGE IVPUSH ×2 (13:19→20:00)
[2024-11-23 15:14] VITALS: BP 107/57; PULSE 64; RESP 12; TEMP 36.8; O2SAT 97
[2024-11-23] MEDS: Famotidine 20 MG TABLET PO (21:20)
[2024-11-23] MEDS: Gabapentin 300 MG CAPSULE PO (21:20)
[2024-11-23] MEDS: clonazePAM 1 MG TABLET PO (21:29)
[2024-11-23 22:30] VITALS: RESP 18
[2024-11-23 23:43] VITALS: BP 110/51; PULSE 54; RESP 16; TEMP 36; O2SAT 98
[2024-11-24] MEDS: oxyCODONE HCl Immed Release 5 MG TABLET PO ×2 (05:43→10:59)
[2024-11-24] MEDS: Enoxaparin Sodium 40 MG/0.4 ML SYRINGE SUBCUT (05:44)
[2024-11-24 07:24] VITALS: BP 103/53; PULSE 64; RESP 18; TEMP 36.4; O2SAT 100
[2024-11-24] MEDS: 0.9 % Sodium Chloride Flush 3 ML SYRINGE IVFLUSH (08:40)
[2024-11-24] MEDS: Famotidine 20 MG TABLET PO (08:41)
[2024-11-24] MEDS: HYDROmorphone HCl 1 MG/ML SYRINGE IVPUSH (08:41)
[2024-11-24] MEDS: FLUoxetine HCl 20 MG CAPSULE PO (09:43)
[2024-11-24] MEDS: FLUoxetine HCl 10 MG CAPSULE PO (09:43)
[2024-11-24] MEDS: methylPREDNISolone Sod Succ 125 MG/2 ML VIAL 60 MG IVPUSH (09:43)
[2024-11-24 12:25] VITALS: BP 103/53; PULSE 64; O2SAT 100
--- NOTE | 2024-11-24 13:50 | PM.DS ---
DS: Providers Provider Date of Service: 11/24/24 Date of admission: 11/22/24 05:39 Date of discharge: 11/24/24 Primary care physician: Luis F Arias MD Consults: 11/22/24 08:58 Consult to Neurology Routine Consulting Provider: [facility] Reason for consultation: back pain, with radiculopathyu DS: Diagnosis Discharge Diagnosis (1) Intractable back pain: Status: Acute (2) Sciatica of left side: Status: Acute DS: Summary Hospital Course Hospital Course: Chief Complaint: Left lower back pain radiating down leg Patient is a 39-year-old female with no significant past medical history, who presented to the ED due to severe left lower back pain radiating down the buttocks to the foot for the past 4 days. She denies any recent injury or any mechanism of action that could have caused this. She reports her father has sciatica and feels that this is the same. She rates her pain at 10/10 and describes it as her leg muscle being too short and pulling upwards. She went to urgent care who prescribed her Medrol Dosepak as well as gave her Toradol and Flexeril. She reports that she had not tried the Flexeril but did not have any relief from any of the other medications. She denies any additional symptoms including nausea, vomiting, abdominal pain, headache, fever, chills or urinary symptoms. She did recently have COVID about 2 weeks ago and has recovered from this. Hospital course: Intractable back pain due to degenerative disc disease, spondylosis and sciatica--She has been having pain for months but never to this degree, she had been seen at an urgent care and given medrol and muslce relaxer and unfortunately pain persistes and she came to the ED where xray showed spondylosis L4-S1, minimal facet degeneration L4-S1, mild disc degeneration evident L4-5 and moderate at L5-S. WBC was elevated but likely from steroid. She was admittef for pain management, a CT back showed. CT of the back showed There is a suggestion of a large left lateral disc extrusion at the L5-S1 level, which appears to be obliterating the left subarticular recess and causing mass effect upon the traversing left S1 roots (series 6, image 98). There is moderate right and mild left neural foraminal narrowing at this level. She was seen by neurology with the following remarks pt seen/examined. Labs, imgaing reviewed. She is having back pain d/t L5-S1 disc extrusion, likely the cause of this problem. She would probably require surgical decompression but for now she could be treated with a tapering dose of prednisone. Neuro surgical consultation is recommended. An MRI of the back was done and showed Large, broad-based left subarticular and foraminal disc herniation L5-S1 compressing the left S1 nerve root resulting in inflammatory changes Left neuroforamina narrowing L5-S1 encroaching the left L5 nerve root secondary to the disc herniation. Lumbar spondylosis L4-5 and L2-3 without compression upon neural elements. Discuss with NeuroSurgery at [facility] and they recommend outpatient follow up on WednesdayNovember 27 at 10. The result were also discussed with discussed with [facility] on 11/23 and they recommend outpatient follow up as stated earlier. The finding and treatment plan was discussed with patient with RN present. Her pain is much improved at this time, she's ambulating without any assistive device, and stable gait. She has no urnniary or stool incontinence and has no focal neuro deficit. She will be discharged with Prednisone ubaldo, Oxycodne and Motrin for pain. She was also seen by PT and will have outpatient PT follow-up Time Attestation Discharge Coordination Time (in mins): 45 Quality: Safe Use of Opioids Does Pt have an Active Cancer Diagnosis on the Problem List?: No Quality: Stroke Does the patient have a stroke diagnosis?: No Physical Exam Vital Signs: Vital Signs: Last Vital Signs Temp 97.5 F 11/24/24 07:24 Pulse 64 11/24/24 12:25 Resp 18 11/24/24 07:24 BP 103/53 L 11/24/24 12:25 Pulse Ox 100 11/24/24 12:25 O2 Del Method Room Air 11/24/24 07:24 BMI result Body Mass Index 23.5 Const: Other: General: AO X 3, no acute distress Resp: CTA bilateral CVS: S1,S2,RRR GI: +BS, NT, no distention Skin: No rash Neuro: motor grossly intact, strenght in both leg intact, does get radiated paint to left upon lifting Psych: appropriate affect Discharge Plan Discharge Anticipated Discharge Date/Time: 11/24/24 13:25 Patient Disposition: Home, Self-Care Discharge Diagnosis: Herniated discs, sciatica, back pain. Referrals: Luis F Arias MD [Primary Care Provider] - 1 Week Discharge Medications: New oxycodone 5 mg Tablet 5 mg PO Q6H PRN (Reason: pain (scale score 7-10)) Qty: 20 0RF Rx Instructions: Partial Fill upon patient request. Continued clonazepam 0.5 mg tablet 1 mg PO BID PRN (Reason: Anxiety) fluoxetine 10 mg capsule 10 mg PO DAILY Rx Instructions: Taken with 20mg tab for total of 30mg daily. albuterol sulfate 90 mcg/actuation HFA aerosol inhaler 2 puff inhalation Q6H PRN (Reason: Shortness Of Breath Or Wheezing) norgestimate-ethinyl estradiol [Tri-Lo-Dorothy] 0.18/0.215/0.25 mg-25 mcg tablet 1 tab PO DAILY fluoxetine 20 mg capsule 20 mg PO DAILY Rx Instructions: Taken with 10mg tab for total of 30mg daily. Discontinued methylprednisolone 4 mg tablets,dose pack 4 mg PO DIRECTED No Action oxycodone 5 mg tablet 5 mg PO Q4H PRN (Reason: pain) Qty: 20 0RF Rx Instructions: Partial Fill upon patient request. Discharge Orders: Discharge Order (Routine); Ordered 11/24/24 Ordered By: Zane Farrar Diet: Advance to usual diet Activity on Discharge: As tolerated Stand Alone Forms: Patient Portal Discharge page, Work/School Release Print Language: Lebanese Care Plan Goals: recovery from back pain Health Concerns: Sciatica, radiculopathy, Back pain Plan of Treatment: Take oxycodone as directed for pain you may also take [id number] motrin for additional pain relief You have a follow up appointment with Neurosurgery(Dr. Bonilla) on Wednesdaynovember 27 at 10 location: [address] [place] [address] [address], [place] [address], Phone:? Assessment: see above Discharge Date/Time: 11/24/24 15:23
--- NOTE | 2024-11-24 14:06 | MHC.CM.PN ---
Pt is medically cleared for discharge home self-care, pt has arranged her own transport home today.
[2024-11-24 15:04] VITALS: BP 105/66; PULSE 62; RESP 16; TEMP 36.3; O2SAT 97
== END 2024-11-24 15:23 | disposition home or self-care (01) ==
LOC: HO.ED 11-22 02:12 → HO.EDOVER 11-22 05:45 → HO.S3 11-22 16:53
PROVIDERS: Registered Nurse Emergency; Admitting Provider Student in an Organized Health Care Education/Training Program; Emergency Provider Emergency Medicine Emergency Medical Services; PCP Internal Medicine; Visit Provider Internal Medicine
DX: M51.27 Other intervertebral disc displacement, lumbosacral region (principal); M54.32 Sciatica, left side; M54.16 Radiculopathy, lumbar region; M51.379 Other intervertebral disc degeneration, lumbosacral region without mention of lumbar back pain or lower extremity pain; M47.9 Spondylosis, unspecified; E11.9 Type 2 diabetes mellitus without complications; Z79.899 Other long term (current) drug therapy
CPT/HCPCS: 36415; 72100; 72131; 72148; 80048; 80053; 81025; 82550; 84702; 85025; 85652; 86140; 96372; 96374; 96375; 96376; 97162; 97530; 97535; 99221; 99285; J1171; J1650; J1885; J2270; J2405; J2919

== ENCOUNTER → 2024-11-21 15:04 | Outpatient (BNV) | payer OTHER, SELFPAY | PROVIDERS: Visit Provider Radiology Diagnostic Radiology | DX: M47.27 Other spondylosis with radiculopathy, lumbosacral region (principal) | CPT/HCPCS: 72100 ==

== ENCOUNTER 2024-11-22 05:39 | Outpatient (BNV) | payer BC, SELFPAY | END 2024-11-22 08:52 | PROVIDERS: Admitting Provider Student in an Organized Health Care Education/Training Program; Emergency Provider Emergency Medicine Emergency Medical Services; Visit Provider Radiology Diagnostic Radiology | DX: M51.27 Other intervertebral disc displacement, lumbosacral region (principal) | CPT/HCPCS: 72131 ==

== ENCOUNTER 2024-11-22 05:39 | Outpatient (BNV) | payer BC, SELFPAY | END 2024-11-23 10:16 | PROVIDERS: Admitting Provider Student in an Organized Health Care Education/Training Program; Emergency Provider Emergency Medicine Emergency Medical Services; PCP Internal Medicine; Visit Provider Radiology Diagnostic Radiology | DX: M51.27 Other intervertebral disc displacement, lumbosacral region (principal); M51.16 Intervertebral disc disorders with radiculopathy, lumbar region; M48.062 Spinal stenosis, lumbar region with neurogenic claudication; M47.816 Spondylosis without myelopathy or radiculopathy, lumbar region | CPT/HCPCS: 72148 ==

== ENCOUNTER → 2024-11-22 05:39 | Outpatient (BNV) | payer BC, SELFPAY | PROVIDERS: Admitting Provider Student in an Organized Health Care Education/Training Program; Emergency Provider Emergency Medicine Emergency Medical Services; PCP Internal Medicine; Visit Provider Psychiatry & Neurology Neurology | DX: M54.16 Radiculopathy, lumbar region (principal) | CPT/HCPCS: 99222 ==

== ENCOUNTER → 2024-11-22 05:39 | Outpatient (BNV) | payer BC, SELFPAY | PROVIDERS: Admitting Provider Student in an Organized Health Care Education/Training Program; Emergency Provider Emergency Medicine Emergency Medical Services; Visit Provider Physician Assistant | DX: M54.9 Dorsalgia, unspecified (principal); M54.32 Sciatica, left side | CPT/HCPCS: 99232 ==

== ENCOUNTER 2024-11-27 09:56 | Outpatient (AMB) | payer BC, SELFPAY ==
--- NOTE | 2024-11-27 09:58 | HO.SPINEOV ---
Intake Visit Reasons: ED f/u Intake Note: Ms. Keller is here today to F/u ED for severe left lower back pain radiating to her buttocks and down her leg to her foot. 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 Oreilly. 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 She does not recall any specific event but just noticed on November 17 that the pain was so severe that she was unable to stand and walk. She had to call out of work. She ended up in the emergency room on the because she just could not handle the discomfort anymore. She was admitted, treated with steroids, Toradol, muscle relaxers and oxycodone. Unfortunately, since she has been home, the pain has only gotten worse. She underwent a lumbar MRI when she was in the hospital it showed a large herniated disc at L5-S1 on the left. She has not report any cauda equina symptoms, but she does report weakness and sensory changes in her left foot. She did a little bit of physical therapy when she was in the hospital trying to get up and walk around but it was too uncomfortable to try to continue. She has been taking Motrin, oxycodone and continuing to taper off her steroids home. She is unable to sleep or walk. She has been unable to work. PMH: Otherwise healthy, history of asthma, anxiety, and tooth extraction Social hx: She smokes marijuana most days, does not smoke cigarettes or use any alcohol Medications: Prednisone, oxycodone, Prozac and Klonopin Allergies: Codeine gives her vomiting but she is able to take oxycodone okay Physical exam: Awake alert oriented, very uncomfortable, walks with an antalgic gait, barely able to get out of a chair to get up to the examining table. She has to lay on her right side while I help her onto the table. She has weakness in her left extensor hallucis longus and gastrocnemius which I would rate as 4/5. She has sensory changes along the left lateral aspect of her foot. She has absent left Achilles reflex. Positive straight leg raise at about 15-20 degrees. In fact any attempts to move her leg or manipulate it to perform a straight leg raise would give her intense shooting pain down into her foot. Imaging review: Lumbar MRI done at [facility] last week shows a large herniated disc fragment on the left at L5-S1 Impression: 39-year-old female presents with an acute left S1 radiculopathy secondary to a large herniated disc fragment on the left at L5-S1. The patient has been battling with the symptoms for about 8 or 9 months but over the last few weeks it has gotten so intense she is unable to walk, sleep or go to work. She was admitted in the hospital for 2 or 3 days where she underwent the MRI and was treated with steroids, anti-inflammatories, muscle relaxers as well as oxycodone. Unfortunately nothing seems to be getting better. She is tearful here in the office showing signs of weakness, numbness and reflex changes. Dr. Bonilla has seen her imaging, we are going to schedule her for a left L5-S1 microdiskectomy next week. At this point, the pain is so intense and with the neurological weakness I do not think there is a role here for injections or therapy. I think it is only going to make her worse or possibly compromise the situation with her nerve. Success rate quoted at 90%. Pt was given risk and benefits of surgery including but not limited to infection, hematoma , nerve injury,durotomy, weakness,bowel/bladder injury, persistent pain, recurrent herniated disc as well as the option to continue with conservative treatment and patient wishes to proceed with surgery. Pt is aware they should stop their motrin, aspirin 7 days prior to surgery. All questions were answered to the best of our ability. If there is anything about this patients medical history that we have overlooked or concerns you have about us proceeding with surgery we would appreciate any input you can offer. Thank you for allowing us to care for your patient. The total time spent with this visit with this patient was 45 minutes reviewing history, physical exam, lumbar imaging review, and implementation of treatment plan or further diagnostic testing George Bonilla MD,PhD [facility] Coding Level of Care Code New Pt Level 4 (36456) Diagnoses Lumbar radiculopathy M54.16
== END 2024-11-27 12:05 | disposition home or self-care (01) ==
PROVIDERS: PCP Internal Medicine; Visit Provider Physician Assistant
DX: M54.16 Radiculopathy, lumbar region (principal)
CPT/HCPCS: 99204

== ENCOUNTER 2024-12-07 07:33 | Day surgery (SDC) | payer BC, SELFPAY ==
[2024-12-05 09:36] VITALS: BMI 24.1
[2024-12-07] VITALS (12 sets, daily range): BP systolic 103–120; BP diastolic 62–79; PULSE 65–82; RESP 12–18; TEMP 36.6–36.9; O2SAT 95–100
--- NOTE | ~2024-12-07 | FL_ITS ---
EXAMINATION: FL GUIDANCE ONLY HISTORY: l5-s1 discectomy COMPARISON: Correlation is made with an MRI of the lumbar spine dated 11/23/2024. TECHNIQUE: Fluoroscopy time: 2.9 seconds. Cumulative Dose: 1.7421 mGy. DAP: 0.6002 mGym2 Images: 1. FINDINGS: A single fluoroscopic spot film of the lumbar spine in the lateral projection demonstrates a probe directed toward the L5-S1 intervertebral disc space from a posterior approach. FL/FL guidance in OR IMPRESSION: Fluoroscopy during procedure. Please see procedure report for additional information. Electronically signed by: Henry Desai MD 12/07/2024 10:51 AM EDT
--- NOTE | 2024-12-07 07:07 | P.DS_ITS ---
DS: Providers Provider Date of Service: 12/07/24 Date of discharge: 12/07/24 Primary care physician: Luis F Arias MD Admitting clinician: Subhash Bonilla DS: Diagnosis Discharge Diagnosis (1) Lumbar radiculopathy: Status: Acute DS: Summary Time Attestation Discharge Coordination Time (in mins): 6 Quality: Safe Use of Opioids Does Pt have an Active Cancer Diagnosis on the Problem List?: No Quality: Stroke Does the patient have a stroke diagnosis?: No Physical Exam Vital Signs: Vital Signs: BMI result Body Mass Index 24.1 Discharge Plan Discharge Patient Disposition: Home, Self-Care Referrals: Luis F Arias MD [Primary Care Provider] - 1 Week Discharge Medications: New oxycodone 5 mg tablet 5 mg PO Q4H PRN (Reason: pain) Qty: 20 0RF Rx Instructions: Partial Fill upon patient request. Continued clonazepam 0.5 mg tablet 1 mg PO BID PRN (Reason: Anxiety) fluoxetine 10 mg capsule 10 mg PO DAILY Rx Instructions: Taken with 20mg tab for total of 30mg daily. albuterol sulfate 90 mcg/actuation HFA aerosol inhaler 2 puff inhalation Q6H PRN (Reason: Shortness Of Breath Or Wheezing) norgestimate-ethinyl estradiol [Tri-Lo-Dorothy] 0.18/0.215/0.25 mg-25 mcg tablet 1 tab PO DAILY fluoxetine 20 mg capsule 20 mg PO DAILY Rx Instructions: Taken with 10mg tab for total of 30mg daily. oxycodone 5 mg Tablet 5 mg PO Q6H PRN (Reason: pain (scale score 7-10)) Qty: 20 0RF Rx Instructions: Partial Fill upon patient request. Discharge Orders: Discharge Order (Routine); Ordered 12/07/24 Ordered By: George Calloway Diet: Advance to usual diet Activity on Discharge: As tolerated Activity Restrictions/Additional Instructions: After your spinal surgery we ask you to observe the following restrictions/guidelines: Activity: It is normal to feel some discomfort as you increase your activity, but that will improve with time. We ask you avoid heavy lifting or acitivities that cause pain. As a general rule, 8lbs is a safe limit for lifting right after surgery. Walk as much as you feel comfortable but not to exhaustion. You will feel extra tired the first few days after surgery. Stay well hydrated. It is OK to walk up and down stairs You may return to driving when you are off narcotics (such as vicodin, oxycodone, dilaudid, etc), and you are back to normal functional capacity. If you have any concerns please check with office before driving. Return to work is specific to each patient and each surgery, so please speak with your doctor/PA at first follow up. Please bring paperwork such as FMLA at that time if you need it filled out. Medications: For optimum pain control, it is best to start with a combination of 500 mg of Tylenol every 4 hours with 600 mg of Motrin every 8 hours, and use narcotics as needed in between for breakthrough pain. We will give you a short supply of narcotics after surgery (usually one weeks worth). If you need more please call the office but do not use more than prescribed. You will need to give our office 48 hours notice if you need narcotics refilled and we do not fill narcotics on weekends or evenings. If you are on a narcotic, it is a good idea to take a stool softener such as colace or senna to avoid constipation If you take blood thinner such as aspirin, Plavix, Coumadin, Effient, Eliquis etc for conditions such as Afib, DVT, Pulmonary embolus, coronary disease, stents etc please speak with your surgeon about specific details as to when you can resume these medications. You can resume NSAIDs on post op day 1 (eg: Motrin, Naproxen, etc). Follow up: Please call the office, , after surgery to arrange a 3 week follow up for wound check. Wound Care: You may remove your dressing on the first day after surgery. ?You may ?leave open to air. Please do not remove the steri strips underneath. they will fall off on their own in one week. IT IS NORMAL FOR THE WOUND TO OOZE OR BE BLOODY FOR A FEW DAYS AFTER SURGERY. ?IF THIS HAPPENS JUST PLACE NEW DRESSING OVER IT TO AVOID STAINING CLOTHES. You may shower on post op day # 1 We ask that you do not let the water soak the wound. If it does get wet, just towel dry lightly. Please do not scrub your incision or place any type of chemical/ointment on the wound. No tub baths, pools or jacuzzis for one month. If you have any leaking or redness from your wound, or fevers, please call office Print Language: [place]
[2024-12-07 08:04] LABS: UPreg QC Valid YES; Urine Pregnancy NEGATIVE (NEGATIVE)
[2024-12-07] MEDS: Lactated Ringers 1,000 ML 100 ML IVCONT (08:16)
[2024-12-07] MEDS: Gabapentin 300 MG CAPSULE PO (08:16)
[2024-12-07] MEDS: methocarbamoL 750 MG TABLET PO (08:16)
--- NOTE | 2024-12-07 08:54 | P.HPSUR_ITS ---
Pre-Procedural Eval Section A - 24 Hr Update-Section A only Date of Service: 12/07/24 The patient is an INPATIENT: No Changes since office visit: No Cold of Flu in the past 2 weeks, No New Medical Problems, No Changes in Medication and No Patient answered all questions The patient has been examined within 24 hours of the surgical procedure. The History & Physical has been completed within 30 days and I have reviewed it.: No Section B - Complete if H&P > 30 days Chief Complaint: Radiculopathy, lumbar region Allergies: Allergies Allergy/AdvReac Type Severity Reaction Status Date / Time codeine [CODEINE] Allergy Mild VOMITTING Verified 11/27/24 10:03 Review of Systems Sugical H&P ROS: Negative: Constitution, Cardiovascular, Respiratory, Neurological, Psychiatric, Hem-Onc, Allergic/Immunologic, Gastrointestinal, Genitourinary, Musculoskeletal, Integumentary, Endocrine and Eyes/Ears/Nose/Throat Exam Surgical H&P Exam: Normal: HEENT, Normal: Heart, Normal: Lungs, Normal: Extremities, Normal: Abdomen, Normal: Skin and Normal: Neurological (awake, aler t,oriented x 3 ) Plan Diagnosis/Plan: Unchanged left L5-S1 microdiskectomy Time Spent With Patient Time: Total time managing care of this patient today _6___ minutes.
--- NOTE | 2024-12-07 09:02 | P.CONAN_ITS ---
Documented by User: Mandie Strickland NP 12/05/24 15:15 HPI - Anesthesia Eval Consult details Narrative: 39yo F for Left L5-S1 MicroLumbar discectomy PMFSH Active Problems Active Problems: All Active Problems Lumbar radiculopathy (Acute) Spondylosis (Acute) Degenerative disc disease at L5-S1 level (Acute) Low back pain radiating to left leg (Acute) Sciatica of left side (Acute) Intractable back pain (Acute) Past Medical History Medical History (Updated 12/05/24 @ 09:47 by Karin Maria RN) Asthma Numbness COVID-19 ADHD Depression Anxiety Surgical History Surgical History (Updated 12/05/24 @ 09:34 by Karin Maria RN) Hx of tooth extraction Hx of section Social History Social History Household Members: Family Housing: House Are you a primary palliative care nurse to a significant other at home: No Do you presently have visiting nurse or other home services: No Patient Tobacco Use Status: Never used Tobacco Second Hand Smoke Exposure: No Use of substances other than those prescribed or required for medical reasons: Yes Substance Use Type: Marijuana Substance Use Frequency: Daily Have you been hit, kicked, punched, or otherwise hurt by someone within the past year? If so, by whom?: No Are you DNR?: No Advance Directives: No Advance Directives Information Provided: Yes Advance Directives on File: No Recently lost weight without trying: No Eating poorly because of decreased appetite: No Nutrition Risks: No Nutritional Risk Patient : No : No Poor oral hygiene: No service: No Meds Allergies Allergy/AdvReac Type Severity Reaction Status Date / Time codeine [CODEINE] Allergy Mild VOMITTING Verified 11/27/24 10:03 Home Medications ?Medication ?Instructions ?Recorded ?Confirmed ?Last Taken ?Type albuterol sulfate 90 mcg/actuation 2 puff inhalation Q6H PRN 11/22/24 12/05/24 Unknown History aerosol inhaler Shortness Of Breath Or Wheezing clonazepam 0.5 mg tablet 1 mg PO BID PRN Anxiety 11/22/24 12/05/24 11/21/24 History fluoxetine 10 mg capsule 10 mg PO DAILY 11/22/24 12/05/24 11/21/24 History fluoxetine 20 mg capsule 20 mg PO DAILY 11/22/24 12/05/24 11/21/24 History norgestimate 0.18 mg/0.215 mg/0.25 1 tab PO DAILY 11/22/24 12/05/24 11/21/24 History mg-ethinyl estradiol 25 mcg tablet (Tri-Lo-Dorothy) Exam Height,Weight and Vital Signs: Height 5 ft 8.5 in Weight 73.028 kg Pertinent Lab Results Pertinent Lab Results: Laboratory Tests 11/23/24 05:30 WBC 8.8 Hgb 12.9 Hct 39.0 Plt Count 214 Sodium 139 Potassium 4.0 Chloride 109 H Carbon Dioxide 22 BUN 11 Creatinine 0.65 Assessment and Plan Assessment Anesthesia Assessment: Chart Reviewed Documented by User: Sadie Sharp DO 12/07/24 09:04 [facility] Past Medical History Medical History (Updated 12/05/24 @ 09:47 by Karin Maria RN) Asthma Numbness COVID-19 ADHD Depression Anxiety Family History Family history of problems with anesthesia: No Surgical History Surgical History (Updated 12/05/24 @ 09:34 by Karin Maria RN) Hx of tooth extraction Hx of section History of Problems with Anesthesia: No Social History Social History Household Members: Family Housing: House Are you a primary palliative care nurse to a significant other at home: No Do you presently have visiting nurse or other home services: No Patient Tobacco Use Status: Never used Tobacco Second Hand Smoke Exposure: No Use of substances other than those prescribed or required for medical reasons: Yes Substance Use Type: Marijuana Substance Use Frequency: Daily Have you been hit, kicked, punched, or otherwise hurt by someone within the past year? If so, by whom?: No Are you DNR?: No Advance Directives: No Advance Directives Information Provided: Yes Advance Directives on File: No Recently lost weight without trying: No Eating poorly because of decreased appetite: No Nutrition Risks: No Nutritional Risk Patient : No : No Poor oral hygiene: No service: No Meds Allergies Allergy/AdvReac Type Severity Reaction Status Date / Time codeine [CODEINE] Allergy Mild VOMITTING Verified 11/27/24 10:03 Home Medications ?Medication ?Instructions ?Recorded ?Confirmed ?Last Taken ?Type albuterol sulfate 90 mcg/actuation 2 puff inhalation Q6H PRN 11/22/24 12/05/24 Unknown History aerosol inhaler Shortness Of Breath Or Wheezing clonazepam 0.5 mg tablet 1 mg PO BID PRN Anxiety 11/22/24 12/05/24 11/21/24 History fluoxetine 10 mg capsule 10 mg PO DAILY 11/22/24 12/05/24 11/21/24 History fluoxetine 20 mg capsule 20 mg PO DAILY 11/22/24 12/05/24 11/21/24 History norgestimate 0.18 mg/0.215 mg/0.25 1 tab PO DAILY 11/22/24 12/05/24 11/21/24 History mg-ethinyl estradiol 25 mcg tablet (Tri-Lo-Dorothy) Exam Exam Date and Time: 12/07/24 0900 Height,Weight and Vital Signs: Height 5 ft 8.5 in Weight 73.028 kg Vital Signs Temperature 97.9 F 12/07/24 08:16 Pulse Rate 82 12/07/24 08:16 Respiratory Rate 16 12/07/24 08:16 Blood Pressure 103/71 12/07/24 08:16 Pulse Oximetry 95 12/07/24 08:16 Oxygen Delivery Method Room Air 12/07/24 08:16 Temperature 97.9 F 12/07/24 08:16 Pulse Rate 82 12/07/24 08:16 Respiratory Rate 16 12/07/24 08:16 Blood Pressure 103/71 12/07/24 08:16 Pulse Oximetry 95 12/07/24 08:16 Oxygen Delivery Method Room Air 12/07/24 08:16 Airway Mallampati Class: I TM Dist: >3cm Neck ROM: Full Loose/Missing/Broken Teeth: No (patient denies any loose or broken teeth) Heart: S1S2 Lungs: CTAB Assessment and Plan Assessment Anesthesia Assessment: Anesthesia Plan Discussed and Chart Reviewed Final Anesthetic Review Family History of Problems with Anesthesia: No History of Problems with Anesthesia: No NPO: Yes ASA Class: II Final Preanesthetic Review: No Changes in Pt Med Stat, Meds/Allgs Chart Reviewed, Consent Obtained/Reviewed and Anes Risks/Benef Reviewed Patient Risk: Low Procedure Risk: Low Anesthetic Plan Anesthetic Plan: GA and Agree w/ Assess. and Plan Disposition: Standard PACU
[2024-12-07] MEDS: ceFAZolin Sodium/Dextrose,Iso 2 GM/50 ML PIGGYBACK IV (09:52)
[2024-12-07] MEDS: Acetaminophen 1,000 MG/100 ML PIGGYBACK 400 MG IV (10:00)
--- NOTE | 2024-12-07 10:34 | W.PM.OPN ---
Operative Note Operative Note Date of Service: 12/07/24 Narrative: Preoperative diagnosis: Left S1 radiculopathy due to disc herniation Postoperative diagnosis: Same Procedure: Left L5-S1 microdiskectomy with microscope Surgeon: Subhash Bonilla MD, PhD Infrastructure Project Manager: shannon Juarez This 39-year-old female developed severe pain radiating down her left leg in an S1 distribution. MRI shows a large extruded disc herniation. Conservative treatment failed. The patient was offered a lumbar microdiskectomy to decompress the nerve root. The procedure complications were explained. The patient was consented. The patient was brought to the operating room and endotracheally intubated. The patient was turned in a prone position on the Myles frame. Prepping and draping was done followed by time-out. A mid lumbar incision was made followed by release of the paravertebral muscles on the left side to expose the L5-S1 interspace. An intraoperative x-rays obtained to confirm the correct level. The microscope was brought in. A left L5 laminotomy was done followed by opening of the flavum ligament. The S1 nerve root was identified and retracted medially to expose the L5-S1 disc space. I could palpate a disc herniation medial from the S1 nerve root, which I carefully removed with a pituitary. The disc space was inspected and any residual disc fragments were removed. This resulted in an excellent decompression of the S1 nerve root. Hemostasis was done. The microscope was removed. Marcaine was injected intramuscularly.The incision was closed in two layers. Steri-Strips used to approximate the incision. An op-site were taken there was used to cover the incision. All sponge and needle counts were correct. Patient was extubated and transported in stable condition to recovery room. this procedure was done with the aid of a physician human resources office assistant who performed the initial exposure until the microscope was brought in and performed the closure of the incision. Anesthesia: General Blood loss: 10 mL Complications: None Specimen: None Surgical time: 40 minutes Disposition: Discharge home
[2024-12-07] MEDS: fentaNYL citrate/PF 100 MCG/2 ML VIAL 50 MCG IVPUSH ×3 (11:00→11:46)
[2024-12-07] MEDS: oxyCODONE HCl Immed Release 5 MG TABLET PO (11:10)
== END 2024-12-07 13:12 | disposition home or self-care (01) ==
LOC: HO.SSS 07:34
PROVIDERS: Nurse Practitioner; PCP Internal Medicine; Visit Provider Neurological Surgery
PROC: (CPT 63030; principal; 2024-12-07 10:40)
DX: M51.17 Intervertebral disc disorders with radiculopathy, lumbosacral region (principal)
CPT/HCPCS: 63030; 81025; J0131; J0690; J1100; J1885; J2003; J2250; J2405; J2704; J3010

== ENCOUNTER → 2024-12-07 07:33 | Outpatient (BNV) | payer BC, SELFPAY | PROVIDERS: PCP Internal Medicine; Visit Provider Neurological Surgery | DX: M51.16 Intervertebral disc disorders with radiculopathy, lumbar region (principal) | CPT/HCPCS: 63030; 99499 ==

== ENCOUNTER 2024-12-28 10:20 | Outpatient (AMB) | payer BC, SELFPAY ==
--- NOTE | 2024-12-28 10:30 | A.SPINEOV_ITS ---
Intake Visit Reasons: 1st post op Intake Note: Ms. Keller is here today for her 1st post op. Document Management Analyst Required: No Allergies codeine [CODEINE] Allergy (Mild, Verified 12/28/24 10:30) VOMITTING Assessment & Plan Assessment & Plan (1) Lumbar radiculopathy: Code(s): M54.16 - Radiculopathy, lumbar region Category: Medical Plan Procedure: Left L5-S1 microdiskectomy Amina is a pleasant 39-year-old female who comes in today for her 1st postoperative visit after having a left-sided L5-S1 microdiskectomy completed by Dr. Bonilla. She reports that overall her severe shooting pains down her left lower extremity are much better than they were prior to surgery. Unfortu nately, she continues to have some residual pains in her left buttocks and left posterior thigh. She was still completing ADLs around her home without much issue, but does state that increased activity seems to exacerbate her pain. She asked several questions regarding returned to work in the postoperative healing course all of which I answered to the best of my ability. No new neurological deficits. Amina ambulates well and rises from a seated position without difficulty. Her posterior incision site is closed and well healing. I would like to follow up with Amina again in 6 weeks for her 2nd postoperative visit. She may be discussing returned to work with her , and will call the clinic if she needs a letter to return on light duty with a 8- 12 lb weight restriction until she is 8 weeks out from surgery. 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 Prashant Bonilla MD,PhD [facility] Coding Level of Care Code Global (60794) Diagnoses Lumbar radiculopathy M54.16
--- OUTSIDE RECORDS SUMMARY | 2024-12-28 11:13 | XMS_ITS ---
Author Name [facility] Organization Unknown Care Team Organization Name Specialty Phone Email Start Date End [facility]
== END 2024-12-28 10:52 | disposition home or self-care (01) ==
LOC: HO.HNS 10:21
PROVIDERS: PCP Internal Medicine; Visit Provider Physician Assistant
DX: M54.16 Radiculopathy, lumbar region (principal)
CPT/HCPCS: 99024

== ENCOUNTER → 2024-12-28 10:20 | Outpatient (BNVA) | payer BC, SELFPAY | PROVIDERS: PCP Internal Medicine; Visit Provider Physician Assistant ==

== ENCOUNTER 2025-02-08 15:10 | Outpatient (AMB) | payer BC, SELFPAY ==
--- NOTE | 2025-02-08 15:29 | A.SPINEOV_ITS ---
Intake Visit Reasons: 2nd post op Intake Note: Ms. Keller is here today for her 2nd post-op visit. 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 She is 2 months out from her L5-S1 microdiskectomy. Her pain has completely gone and the numbness in her foot and weakness is completely resolved. At this point she has no restrictions. She can follow up with us on an as-needed basis. She is otherwise doing great and hopefully she will not need another surgery down the road. George Bonilla MD, PhD [facility] Coding Level of Care Code Global (65042) Diagnoses Degenerative disc disease at L5-S1 level M51.379
== END 2025-02-08 16:00 | disposition home or self-care (01) ==
LOC: HO.HNS 15:11
PROVIDERS: PCP Internal Medicine; Visit Provider Physician Assistant
DX: M51.379 Other intervertebral disc degeneration, lumbosacral region without mention of lumbar back pain or lower extremity pain (principal)
CPT/HCPCS: 99024